=== PATIENT | female | born 1935 | race Caucasian/White ===

== ENCOUNTER 2019-02-07 13:36 | Emergency (ER) | payer OTHER ==
[~2019-02-07] VITALS: Ht 157.5 cm; Wt 60.3 kg
[2019-02-07] MEDS ORDERED: VICODIN 5-3001 EACH PO (13:47)
[2019-02-07] MEDS ORDERED: VIACTIV SOFT C1 EACH PO (13:48)
[2019-02-07] MEDS ORDERED: IBUPROFEN 200200 M1 PO (13:48)
[2019-02-07] MEDS ORDERED: DOXYCYCLINE 10100 MG PO (14:42)
[2019-02-07 15:04] VITALS: BP 166/82
== END 2019-02-07 14:55 | disposition home or self-care (01) ==
LOC: ER 13:36
DX: S90.561A Insect bite (nonvenomous), right ankle, initial encounter (principal); Z88.0 Allergy status to penicillin; Z88.8 Allergy status to other drugs, medicaments and biological substances; W57.XXXA Bitten or stung by nonvenomous insect and other nonvenomous arthropods, initial encounter; Y92.89 Other specified places as the place of occurrence of the external cause; Y93.89 Activity, other specified; Y99.8 Other external cause status